=== PATIENT | female | born 1975 | race Caucasian/White ===

== ENCOUNTER 2019-03-20 07:52 | Day surgery (SDC) | payer OTHER ==
[~2019-03-20] VITALS: Ht 175.3 cm; Wt 69.8 kg
[2019-03-20] VITALS (15 sets, daily range): BP systolic 105–137; BP diastolic 48–82; PULSE 64–92; RESP 15–23; Ht 175.3 cm; Wt 69.8 kg
[~2019-03-20 07:52] MED LIST: SOD CHLORIDE 0.9% 1,000 ML IV SCH
[2019-03-20] MEDS ORDERED: CHOL100062 PO (08:41)
[2019-03-20] MEDS ORDERED: SPIR100T4 PO (08:41)
[2019-03-20] MEDS ORDERED: PROG100C5 PO (08:41)
[2019-03-20] MEDS ORDERED: ROCURONIUM 50 MG INJ ONE (09:03)
[2019-03-20] MEDS ORDERED: CEFAZOLIN 1 GM INJ ONE (09:03)
[2019-03-20] MEDS ORDERED: PROPOFOL 20 ML ONE (09:03)
[2019-03-20] MEDS ORDERED: FENTAnyl 50 MCG/ML VIAL ONE ×2 (09:03→10:55)
[2019-03-20] MEDS ORDERED: MIDAZOLAM 1 MG/ML 2 ML INJ ONE (09:03)
--- NOTE | 2019-03-20 09:48 | HPN ---
Date/Time of Note Date/Time of Note DATE: 03/20/19 TIME: 09:48 Interval H&P Admission Note Pt. seen H&P reviewed: No system changes NELLI FAYE MD Mar 20, 2019 09:48
[2019-03-20] MEDS ORDERED: BUPIVACAINE 0.25%/EPI (SDV) 30 ML INJ ONE (09:55)
[2019-03-20] MEDS ORDERED: GENTAMICIN 80 MG INJ ONE (09:55)
[2019-03-20] MEDS ORDERED: POLYMYXIN/BACITRACIN 1L IRRIG ONE (09:55)
--- NOTE | 2019-03-20 09:59 | PREAC ---
Date/Time of Note Date/Time of Note DATE: 03/20/19 TIME: 09:56 Anesthesia Eval and Record Evaluation Time Pre-Procedure Interview DATE: 03/20/19 TIME: 09:56 Age 44 Sex female NPO: 8 hrs Preoperative diagnosis Transgender Bilateral Breast Reconstruction and Augmentation Planned procedure Transgender Bilateral Breast Reconstruction and augmentation Past Medical History Past Medical History: None Surgery & Anesthesia Issues No known issue Meds Anticoagulation: No Beta Patricia within 24 hr: No Reason Beta Patricia not given: Pt. not on B-Patricia Reported Medications Cholecalciferol* (Vitamin D3*) 1,000 Unit Tablet, 1000 UNIT PO DAILY, TAB 03/20/19 Progesterone,Micronized* (Progesterone*) 100 Mg Capsule, 100 MG PO HS, CAP 03/20/19 Spironolactone* (Spironolactone*) 100 Mg Tablet, 100 MG PO BID, TAB 03/20/19 Current Medications Sodium Chloride 1,000 ml @ 20 mls/hr Q24H IV Last administered on 03/20/19at 08:44; Admin Dose 20 MLS/HR; Start 03/20/19 at 06:00; Stop 03/20/19 at 17:00 Meds reviewed: Yes Allergies Coded Allergies: No Known Allergy (Unverified , 03/20/19) Allergies Reviewed: Yes Labs/Studies Labs Reviewed: Reviewed by anesthesiologist test: N/A Studies: ECG (n/a), CXR (n/a) Pre-procedure Exam Last vitals Vital Signs Date Temp Pulse Resp B/P (MAP) Pulse Ox O2 O2 Flow FiO2 Time Delivery Rate 03/20/19 97.6 76 16 108/77 99 09:14 (87) Airway: Adequate mouth opening, Adequate thyromental dist Mallampati: Mallampati II Teeth: Normal Lung: Normal Heart: Normal ASA Physical Status ASA physical status: 1 Emergency: None Planned Anesthetic General/MAC: ETT Planned Pain Management Parenteral pain med Pre-operative Attestations Prior to commencing anesthesia and surgery, the patient was re-evaluated, there was verification of: *The patient's identity *The results of appropriate recent lab work and preoperative vital signs *The above evaluation not changing prior to induction *Anesthetic plan, risk benefits, alternative and complications discussed with patient/family; questions answered; patient/family understands, accepts and wishes to proceed. CARMENCITA GRISSOM MD Mar 20, 2019 09:59
[2019-03-20] MEDS ORDERED: morphine 2 MG INJ IV PRN (10:00)
[2019-03-20] MEDS ORDERED: HYDROCODONE/APAP (5/325) TAB PO PRN (10:00)
[2019-03-20] MEDS ORDERED: BUPIVACAINE LIPOSOME/PF 266 MG/20 ML VIAL INFIL SCH (10:00)
[2019-03-20] MEDS ORDERED: ONDANSETRON 4 MG INJ IV PRN ×2 (10:00→12:30)
[2019-03-20] MEDS ORDERED: BUPIVACAINE LIPOSOME/PF 266 MG/20 ML VIAL INFIL ONE (10:30)
[2019-03-20] MEDS ORDERED: ONDANSETRON 4 MG INJ ONE (11:23)
[2019-03-20] MEDS ORDERED: DEXAMETHASONE 4 MG/ML 5 ML INJ ONE (11:23)
[2019-03-20] MEDS ORDERED: METOCLOPRAMIDE 10 MG INJ ONE (11:23)
[2019-03-20] MEDS ORDERED: SUGAMMADEX SODIUM 200 MG/2 ML VIAL IV ONE (11:23)
[2019-03-20] MEDS ORDERED: ACETAMINOPHEN 325 MG TAB PO PRN (11:30)
[2019-03-20] MEDS ORDERED: EPHEDrine 25 MG/5 ML SYG ONE (11:33)
[2019-03-20] MEDS ORDERED: NALOXONE (0.4 MG/ML) INJ ONE (11:33)
--- NOTE | 2019-03-20 11:36 | OPR ---
Date/Time of Note Date/Time of Note DATE: 03/20/19 TIME: 11:30 Operative Report Free Text/Dictation Plastic Surgery Operative Report Preoperative diagnosis: gender dysphoria Postoperative diagnosis: same Procedure: bilateral transgender breast reconstruction Surgeon: karime Waller.: NARAYAN turner Anesthesia: gen EBL: min IV fluids: per flow sheet Findings: n/a Complications: none Dispo: home Indications for procedure: 44-year-old transgender male to female patient presents for bilateral breast reconstruction with implants. The risks, benefits, alternatives of performing this procedure were discussed with the patient including risks of bleeding, infection, wound healing problems, asy mmetry, as well as implant related complications such as deflation, capsular contracture, rupture, and need for future revisions as breast implants are not lifetime devices. The patient states that she understands these risks and would like to proceed with the procedure. All questions were answered, no guarantees were given with regards to the outcome of this procedure. Description of procedure: The patient was brought to the operating room at [facility] where general anesthesia was induced and the patient was prepped and draped in usual sterile fashion with ChloraPrep. A total of 5 cc of 0.25% Marcaine with 1: 200,000 epinephrine was injected into the planned incision site in each breast. The incision sites were marked along the new planned inframammary fold position based on the anticipated size of the breasts. the left nipple and fold were noted to be higher than the right side. Next, an incision was made in the right plan inframammary fold with the 15 blade, and dissection was carried out down to the pectoralis muscle with electrocautery. The pectoralis muscle was released on its inferior surface, and the subpectoral space was entered. A pocket was then created below the pectoralis muscle. Dissection proceeded medially, then superiorly, laterally, and under direct visualization, the pectoralis muscle was released from lateral to medial along its inferior fibers to the lateral border of the sternum. The pocket was irrigated with antibiotic irrigation, hemostasis was achieved with electrocautery, and then attention was turned to the left breast where a similar procedure was carried out. Incision was made with 15 blade, and dissection was carried out down to the pectoralis muscle with electrocautery. The pectoralis muscle was released along its inferior fibers, and then the subpectoral space was entered. The pocket was created underneath the pectoralis muscle in a similar fashion, and an electro cautery was used to divide the inferior attachments of the pectoralis muscle under direct visualization from lateral to medial. Hemostasis was achieved with electrocautery, and the pocket was irrigated antibiotic irrigation, and the pockets were inspected and found to be symmetric. A sizer was opened, rinsed in antibiotic irrigation, and was inserted into the left breast. It was inflated to 450cc. This looked too large. It was deflated to 435cc. This looked close to the patient's stated desire. The sizer was then removed and placed into the contralateral breast. It was inflated to 435cc and looked symmetric to the other side. The sizer was removed. A final round of hemostasis was achieved with electrocautery, and the pockets were irrigated antibiotic irrigation and betadine. The betadine was allowed to sit in the pocket for 5 minutes. Gloves were changed, and then a Sientra 435 cc mod plus implant SN [id number] was opened, rinsed in antibiotic irrigation, and was inserted into the left breast with minimal touch technique using the Chaudhry funnel. The same size and style implant serial #[id number] was inserted into the right breast with minimal touch technique using the funnel. The patient was sat up on the table and the breasts were symmetric. She was sat back down. A deep layer of tissue on [place]'s fascia was closed with 2-0 Vicryl suture followed by 3-0 Vicryl suture on the dermis and 4-0 Vicryl suture on the skin and skin adhesive. 40cc of dilute exparel solution were injected into the breasts. The patient tolerated procedure well, there were no complications, follow-up information and wound care instructions were given. Preoperative Diagnosis gender dysphoria Postoperative Diagnosis same Operation/Procedure Performed bilateral transgender breast reconstruction Surgeon see signature line Special Needs Caregiver NARAYAN turner Anesthesia Type: general Estimated Blood Loss: minimal Transfusion none Specimen none Grafts/Implants bilateral breast implants Complications none Pt Condition Post Procedure: stable Procedure Description see dictation NELLI FAYE MD Mar 20, 2019 11:36
--- NOTE | 2019-03-20 11:44 | PAC ---
Date/Time of Note Date/Time of Note DATE: 03/20/19 TIME: 11:43 Post-Anesthesia Notes Post-Anesthesia Note Last documented vital signs Vital Signs Date Temp Pulse Resp B/P (MAP) Pulse Ox O2 O2 Flow FiO2 Time Delivery Rate 03/20/19 98.0 76 16 108/77 99 face mask 8L 11:41 (87) Activity: WNL Respiratory function: WNL Cardiovascular function: WNL Mental status: Baseline Pain reasonably controlled: Yes Hydration appropriate: Yes Nausea/Vomiting absent: Yes CARMENCITA GRISSOM MD Mar 20, 2019 11:44
[2019-03-20] MEDS ORDERED: METOCLOPRAMIDE 10 MG INJ IV PRN (12:30)
[2019-03-20] MEDS ORDERED: DIPHENHYDRAMINE 50 MG INJ IV PRN (12:30)
[2019-03-20] MEDS ORDERED: FENTAnyl 50 MCG/ML VIAL IV PRN ×2 (12:30)
[2019-03-20] MEDS ORDERED: EPHEDrine 25 MG/5 ML SYG IV PRN (12:30)
[2019-03-20] MEDS ORDERED: HYDROmorphONE 1 MG/5 ML IV SYRINGE IV PRN ×2 (12:30)
[2019-03-20] MEDS ORDERED: MEPERIDINE 25 MG INJ IV PRN (12:30)
[2019-03-20] MEDS ORDERED: OXYCODONE/ACETAMINOPHEN (5/325) TAB PO PRN (12:30)
== END 2019-03-20 14:17 | disposition home or self-care (01) ==
LOC: SDS 07:52
PROVIDERS: ATTEND Surgery Plastic and Reconstructive Surgery
DX: F64.9 Gender identity disorder, unspecified (principal); E55.9 Vitamin D deficiency, unspecified
CPT/HCPCS: 19325; C1789; C9290; J0690; J1100; J1580; J2250; J2270; J2310; J2405; J2765; J3010; Z7512; Z7610